=== PATIENT | female | born 1965 | race Two or more races ===

== ENCOUNTER 2020-09-24 16:49 | Inpatient (IN) | payer MEDICARE, OTHER ==
[~2020-09-24] VITALS: Ht 160 cm; Wt 71.7 kg
[2020-09-24 20:00] VITALS: BP 136/76
[2020-09-24] MEDS ORDERED: MAGNESIUM HYDROXIDE 30 ML LIQUID UDC PO PRN (20:30)
[2020-09-24] MEDS ORDERED: BLOOD SUGAR DIAGNOSTIC 1 EACH STRIP VI ONE (20:30)
[2020-09-24] MEDS ORDERED: MAG HYDROX/AL HYDROX/SIMETH 30 ML LIQUID UDC PO PRN (20:30)
[2020-09-25 03:02] LABS: *BILIRUBIN,URIN NEGATIVE (NEGATIVE); *BLOOD, URINE NEGATIVE (NEGATIVE); *CLARITY,URINE CLEAR (CLEAR); *KETONES,URINE NEGATIVE (NEGATIVE); *UROBILINOGEN,URINE 0.2 E.U./dl (NORMAL); LEUKOCYTE ESTERASE ,URINE NEGATIVE (NEGATIVE); NITRITE, URINE NEGATIVE (NEGATIVE); UGLUCOSE NEGATIVE (NEGATIVE)
[2020-09-25 03:03] LABS: *COLOR,URINE STRAW (YELLOW)
[2020-09-25 03:43] LABS: *AMPHETAMINE, URINE NEGATIVE (NEGATIVE); *CANNABINOID, URINE NEGATIVE (NEGATIVE); *COCCAINE, URINE NEGATIVE (NEGATIVE); *OPIATE, URINE NEGATIVE (NEGATIVE); *PHENCYCLIDINE SCREEN,URINE NEGATIVE (NEGATIVE)
--- NOTE | 2020-09-25 03:46 | NUR ---
Admission Note: 55 y.o. Canadian (Canadian and Yi-speaking) female admitted to [facility] accompanied by 2 website project manager as a direct admit from [facility]. Pt is on a 5150 for GD, and is under the care of Dr Melgoza and Dr Barajas, with a dx of Psychosis. According to the 5150, Pt was found talking to herself, acting bizarre, and being aggressive to others. Pt was disoriented and unable to care for herself, or verbalize a plan for self care. Upon face to face assessment, Pt is A+Ox2 to self and place, presents with altered thought process-agitated, confused, and disoriented. Pt has poor insight into situation and reason for admission, is delusional and non-sensical. Pt is crying, tearful, emotional, and keeps repeating, the lady or that lady. Pt is noted to be restless and anxious, but refused prn medication. Denies SI/HI and verbally contracted for safety, but is unreliable due to poor impulse control, agitation, and over reaction to stressors. Upon admission to the unit VS stable, denies pain, BS 163, denies s/s r/t hyperglycemia. Unable to obtain firearm or legal hx, and per previous hospital record, Pt has no h/o smoking, drug, or alcohol abuse. Pt reluctantly took a shower and skin assessment completed with licensed female staff, skin c/d/i. Pt placed in clean hospital gown and pants. Pt has a known medical h/o psychosis, DM, and schizophrenia, NKA. Dr Melgoza and Dr Barajas notified of admission, orders received, meds to be reconciled. Unable to obtain family contacts with the Pt or through the previous medical record, will refer to Multimedia Specialist for follow up. Pt has a weak gait, refused FWW, PT ordered. UDS and UA negative from previous hospital. Belongings inventoried and placed in Pt locker. Pt was cognitively unable to sign paperwork, co-signed with fat pressroom worker. Pt educated regarding unit rules and expectations. Patient rights explained, Advisement and patient rights handbook given, Pt will need reinforcement due to cognitive impairment. Pt oriented to the unit, the phones, her room, and the bathroom. Q 15 minute safety checks initiated.
[2020-09-25 07:30] VITALS: BP 115/74
[2020-09-25] MEDS: ACETAMINOPHEN 325 MG TABLET PO PRN (08:13)
--- NOTE | 2020-09-25 10:29 | NUR ---
KRISTINE Family Contact: SW spoke with patient's brother, Rickie ([phone]) regarding patient's treatment and discharge plan. Rickie stated that the patient has been homeless for a while and does not accept care from anyone. Rickie stated that he has tried to help the patient and provide her mcfp however she always refuses or destroys his property. Rickie stated that he wants to receive updates regarding where she goes however does not want to be involved in her care.
--- NOTE | 2020-09-25 10:48 | NUR ---
KRISTINE Initial Discharge Plan: Patient is currently homeless and will require alternate SNF placement upon discharge. Patient's brother, Rickie ([phone]) is aware of the patient's current situation and would like to be updated with her discharge plan. KRISTINE will continue to work with patient, family, and MD to ensure a safe and proper discharge plan.
--- NOTE | 2020-09-25 10:50 | NUR ---
Firearms Report: Brim Edge Trimmer completed and submitted a [employer] firearms report for 5150 grave disability certification. A copy of report has been placed in patient chart.
[2020-09-25 15:29] VITALS: BP 150/92
[2020-09-25 18:46] LABS: BASOPHILS % (AUTO) 0.7 % (0.0-2.0); EOSINOPHILS % (AUTO) 0.8 % (0.0-7.0); HEMATOCRIT 38.6 % (31.2-41.9); HEMOGLOBIN 13.1 g/dL (10.9-14.3); LYMPHOCYTES # (AUTO) 1.5 K/uL (20.0-40.0); LYMPHOCYTES % (AUTO) 22.9 % (20.5-51.5); MEAN CORPUSCULAR HGB CONC 34 g/dL (32.3-35.6); MEAN CORPUSCULAR VOLUME 91.2 fL (75.5-95.3); MONOCYTES # (AUTO) 0.5 K/uL (2.0-10.0); MONOCYTES % (AUTO) 8.1 % (0.0-11.0); NEUTROPHILS # (AUTO) 4.4 K/uL (1.8-8.9); NEUTROPHILS % (AUTO) 67.5 % (38.5-71.5); PLATELET COUNT (AUTO) 236 K/uL (179-408); RED BLOOD CELL COUNT(AUTO) 4.23 MIL/uL (3.63-4.92); WHITE BLOOD COUNT (AUTO) 6.6 K/uL (3.8-11.8)
[2020-09-25 19:04] LABS: BILIRUBIN,TOTAL 0.5 mg/dL (0.2-1.0); CREATININE 0.8 mg/dL (0.6-1.3); POTASSIUM 4.3 mmol/L (3.5-5.1)
[2020-09-25 20:00] VITALS: BP 139/96
--- NOTE | 2020-09-25 20:30 | NUR ---
GPS: Pt.was asked about wanting her flu vaccine this season. Pt.declined despite explanation of risks vs.benefits x3. Refused reading material regarding vaccines when offered x3.
[2020-09-25] MEDS: risperiDONE 0.5 MG TABLET PO SCH (20:37)
[2020-09-25] MEDS ORDERED: risperiDONE 0.5 MG TABLET PO SCH (21:00)
[2020-09-26 07:30] VITALS: BP 146/78
[2020-09-26] MEDS: risperiDONE 0.5 MG TABLET PO SCH ×2 (08:15→20:28)
--- NOTE | 2020-09-26 08:52 | NUR ---
SNF Referral: This SW sent referral to [facility] admin from [facility] ([phone]) and will review if pt is accepted or not.
[2020-09-26 16:54] VITALS: BP 112/63
[2020-09-26 19:45] VITALS: BP 113/69
[2020-09-26] MEDS ORDERED: DEXTROSE 50% 50 ML DISP.SYRIN IV PRN (20:15)
[2020-09-26 20:25] VITALS: BP 113/69
[2020-09-26] MEDS: BLOOD SUGAR DIAGNOSTIC 1 EACH STRIP VI SCH (21:19)
[2020-09-26] MEDS ORDERED: INSULIN REGULAR, HUMAN 300 UNIT/3 ML VIAL ONE (21:59)
[2020-09-26] MEDS: INSULIN REGULAR, HUMAN 300 UNIT/3 ML VIAL SQ PRN (22:03)
[2020-09-27] MEDS: LORAZEPAM 1 MG TABLET PO PRN ×2 (00:25→12:08)
[2020-09-27] MEDS: glipiZIDE 5 MG TABLET PO SCH ×2 (06:37→16:34)
[2020-09-27] MEDS: BLOOD SUGAR DIAGNOSTIC 1 EACH STRIP VI SCH ×4 (06:37→20:11)
[2020-09-27 07:30] VITALS: BP 126/78
[2020-09-27] MEDS: risperiDONE 0.5 MG TABLET PO SCH ×2 (08:23→20:12)
[2020-09-27] MEDS: MULTIVITAMINS,THERAPEUTIC TABLET PO SCH (08:23)
[2020-09-27] MEDS: LISINOPRIL 5 MG TABLET PO SCH (08:23)
[2020-09-27] MEDS: METFORMIN HCL 500 MG TABLET PO SCH ×2 (08:23→16:34)
--- NOTE | 2020-09-27 09:59 | NUR ---
SNF Contact: This SW contacted [facility] admin from [facility] ([phone]) who stated pt is denied due to eloping for their facility.
--- NOTE | 2020-09-27 10:00 | NUR ---
SNF Referral: This SW sent patient's clinicals to Eddie Ramirez ([phone]) to find a SNF.
[2020-09-27] MEDS: INSULIN REGULAR, HUMAN 300 UNIT/3 ML VIAL SQ PRN ×2 (13:25→20:14)
--- NOTE | 2020-09-27 14:30 | NUR ---
Gps/Linen Supply Load Builder- Talking loud on the phone, redirected back in her room.Asleep for awhile.
[2020-09-27 16:00] VITALS: BP 107/70
[2020-09-27 20:00] VITALS: BP 100/83
[2020-09-27] MEDS: DIVALPROEX 250 MG TABLET.DR PO SCH (20:12)
--- NOTE | 2020-09-28 05:45 | NUR ---
Received patient in bed last night, easy to arouse. Patient is withdrawn and isolative. At one point during the night patient was pacing back and forth in the day room but was redirectable. Patient denies SI, but unwilling to engage in any meaningful conversation. Total hours of sleep are 9.0 Continuing to monitor for safety and any behavioral issues.
[2020-09-28] MEDS: BLOOD SUGAR DIAGNOSTIC 1 EACH STRIP VI SCH ×4 (06:30→20:00)
[2020-09-28] MEDS: glipiZIDE 5 MG TABLET PO SCH ×2 (06:30→16:30)
[2020-09-28 07:30] VITALS: BP 92/62
[2020-09-28] MEDS: risperiDONE 0.5 MG TABLET PO SCH (08:05)
[2020-09-28] MEDS: DIVALPROEX 250 MG TABLET.DR PO SCH ×2 (08:05→20:01)
[2020-09-28] MEDS: MULTIVITAMINS,THERAPEUTIC TABLET PO SCH (08:05)
[2020-09-28] MEDS: LISINOPRIL 5 MG TABLET PO SCH (08:05)
[2020-09-28] MEDS: METFORMIN HCL 500 MG TABLET PO SCH ×2 (08:05→17:06)
[2020-09-28 16:00] VITALS: BP 125/73
--- NOTE | 2020-09-28 18:22 | NUR ---
Received Aox1, patient labile, responding to internal stimuli , patient pacing in hallway , easily irritable, patient selectively compliant with care and treatment, seen by dr. Melgoza, , montred [id number] for safety, no sign of distress, will continue monitor
[2020-09-28] MEDS: risperiDONE 1 MG TABLET PO SCH (20:01)
[2020-09-28] MEDS: INSULIN REGULAR, HUMAN 300 UNIT/3 ML VIAL SQ PRN (20:04)
--- NOTE | 2020-09-29 05:38 | NUR ---
Patient slept 6.15 hours. Up early trying to bath in the sink in the day room. Compliant with medications and blood sugar checks. No behavioral issues during the night. Continuing to monitor for safety.
[2020-09-29] MEDS: glipiZIDE 5 MG TABLET PO SCH ×2 (06:14→16:09)
[2020-09-29] MEDS: BLOOD SUGAR DIAGNOSTIC 1 EACH STRIP VI SCH ×4 (06:47→20:02)
[2020-09-29 07:30] VITALS: BP 127/87
[2020-09-29] MEDS: METFORMIN HCL 500 MG TABLET PO SCH ×2 (07:51→17:18)
[2020-09-29] MEDS: MULTIVITAMINS,THERAPEUTIC TABLET PO SCH (08:01)
[2020-09-29] MEDS: DIVALPROEX 250 MG TABLET.DR PO SCH ×2 (08:02→20:03)
[2020-09-29] MEDS: risperiDONE 1 MG TABLET PO SCH ×2 (08:02→20:03)
[2020-09-29] MEDS: LISINOPRIL 5 MG TABLET PO SCH (08:02)
[2020-09-29] MEDS: INSULIN REGULAR, HUMAN 300 UNIT/3 ML VIAL SQ PRN (08:15)
[2020-09-29] MEDS: LORAZEPAM 1 MG TABLET PO PRN (08:28)
[2020-09-29] MEDS: risperiDONE 0.5 MG TABLET PO SCH (16:10)
[2020-09-29 16:40] VITALS: BP 129/71
--- NOTE | 2020-09-29 17:30 | NUR ---
Received patient AOx1, patient quiet, seen pacing in the hallway, this morning patient started shouting while shes in the toilet, patient responding to internal stimuli, oral prn was given for anxiety, patient calmed down and able to control her hallucinations, patient took naps in her room, compliant with care and treatment, monitored q15 minutes for safety, no sign of any distress , yury continue monitor
[2020-09-29 20:00] VITALS: BP 108/63
[2020-09-30] MEDS: BLOOD SUGAR DIAGNOSTIC 1 EACH STRIP VI SCH ×2 (06:30→12:18)
[2020-09-30] MEDS: glipiZIDE 5 MG TABLET PO SCH ×2 (06:31→16:13)
--- NOTE | 2020-09-30 06:40 | NUR ---
Patient remain calm and stayed in her room, patient slept hours, patient been compliant , redirectable, no sign of any distress , patient has lessen episode of having auditory hallucination and havent had any episode of shouting, patient monitored [id number] for safety, patient stays mostly in her bed, patient woke up and went to dining room but went back to her room again
[2020-09-30 07:30] VITALS: BP 129/68
[2020-09-30] MEDS: DIVALPROEX 250 MG TABLET.DR PO SCH ×2 (08:02→20:03)
[2020-09-30] MEDS: risperiDONE 0.5 MG TABLET PO SCH ×3 (08:02→16:13)
[2020-09-30] MEDS: METFORMIN HCL 500 MG TABLET PO SCH ×2 (08:09→17:03)
[2020-09-30] MEDS: MULTIVITAMINS,THERAPEUTIC TABLET PO SCH (08:10)
[2020-09-30] MEDS: LISINOPRIL 5 MG TABLET PO SCH (08:11)
[2020-09-30] MEDS: INSULIN REGULAR, HUMAN 300 UNIT/3 ML VIAL SQ PRN (12:23)
[2020-09-30 16:00] VITALS: BP 117/78
--- NOTE | 2020-09-30 17:10 | NUR ---
patient is alert and oriented x3, pacing in hallway,responded to internal stimuli ,remains isolative and withdrawn .compliant with all medication and care, will continue close monitoring.
[2020-09-30 20:00] VITALS: BP 101/68
[2020-09-30] MEDS: risperiDONE 1 MG TABLET PO SCH (20:02)
[2020-09-30] MEDS: ATORVASTATIN 10 MG TABLET PO SCH (20:03)
[2020-10-01] MEDS: LORAZEPAM 1 MG TABLET PO PRN (05:08)
--- NOTE | 2020-10-01 06:13 | NUR ---
Patient was crying at the beginning of the shift and responding to internal stimuli. Patient slept 8.30 hours ,but woke up and was pacing the hallway going into another patients room. When redirected patient became agitated and begun to yell. Patient received a PRN medication and is back in own bed resting. Continuing to monitor for safety and behavior escalation.
[2020-10-01] MEDS: glipiZIDE 5 MG TABLET PO SCH ×2 (06:41→17:04)
[2020-10-01 07:30] VITALS: BP 90/63
[2020-10-01] MEDS: MULTIVITAMINS,THERAPEUTIC TABLET PO SCH (08:08)
[2020-10-01] MEDS: risperiDONE 0.5 MG TABLET PO SCH ×3 (08:08→17:03)
[2020-10-01] MEDS: DIVALPROEX 250 MG TABLET.DR PO SCH ×2 (08:08→20:40)
[2020-10-01] MEDS: LISINOPRIL 5 MG TABLET PO SCH (08:08)
[2020-10-01] MEDS: METFORMIN HCL 500 MG TABLET PO SCH ×2 (08:08→17:03)
--- NOTE | 2020-10-01 10:02 | NUR ---
Probable Case Hearing: Patient's probable cause hearing was held today and it was upheld for GD and danger to self.
--- NOTE | 2020-10-01 15:14 | NUR ---
SNF Contact: This SW received a phone call from Eddie zaman who stated patient is accepted at [facility].
[2020-10-01 15:39] VITALS: BP 157/96
[2020-10-01 20:29] VITALS: BP 113/57
[2020-10-01] MEDS: ATORVASTATIN 10 MG TABLET PO SCH (20:40)
[2020-10-01] MEDS: risperiDONE 1 MG TABLET PO SCH (20:40)
[2020-10-02] MEDS: glipiZIDE 5 MG TABLET PO SCH ×2 (06:48→16:22)
[2020-10-02 07:30] VITALS: BP 125/78
[2020-10-02] MEDS: METFORMIN HCL 500 MG TABLET PO SCH ×2 (08:03→16:22)
[2020-10-02] MEDS: DIVALPROEX 250 MG TABLET.DR PO SCH ×2 (08:04→21:13)
[2020-10-02] MEDS: risperiDONE 1 MG TABLET PO SCH ×2 (08:04→21:13)
[2020-10-02] MEDS: MULTIVITAMINS,THERAPEUTIC TABLET PO SCH (08:04)
[2020-10-02] MEDS: LISINOPRIL 5 MG TABLET PO SCH (08:04)
[2020-10-02 16:00] VITALS: BP 99/63
--- NOTE | 2020-10-02 18:11 | NUR ---
received patient compliant with all medication , pacing in hallway .denies any suicidal ideation.
[2020-10-02 20:06] VITALS: BP 118/57
[2020-10-02] MEDS ORDERED: risperiDONE 0.5 MG TABLET PO SCH (21:00)
[2020-10-02] MEDS: ATORVASTATIN 10 MG TABLET PO SCH (21:11)
[2020-10-03] MEDS: TEMAZEPAM 7.5 MG CAPSULE PO PRN (00:13)
[2020-10-03 07:30] VITALS: BP 120/72
[2020-10-03] MEDS: MULTIVITAMINS,THERAPEUTIC TABLET PO SCH (08:04)
[2020-10-03] MEDS: METFORMIN HCL 500 MG TABLET PO SCH ×2 (08:04→17:02)
[2020-10-03] MEDS: risperiDONE 1 MG TABLET PO SCH ×2 (08:04→20:11)
[2020-10-03] MEDS: glipiZIDE 5 MG TABLET PO SCH ×2 (08:04→16:00)
[2020-10-03] MEDS: DIVALPROEX 250 MG TABLET.DR PO SCH ×2 (08:04→20:10)
[2020-10-03] MEDS: LISINOPRIL 5 MG TABLET PO SCH (08:05)
[2020-10-03 16:00] VITALS: BP 104/59
--- NOTE | 2020-10-03 18:19 | NUR ---
Received patient AOx1, patient ambulatory, self care, able to redirect, compliant with medication, patient seen walking in the hallway , patient denies SI and Hi, patient verbalizes that shes fine and answers question appropriately, patient verbalizes concern on her Discharge planning, patient calm cooperative in most of the day, patient still responding to internal stimuli, patient screaming in her room , asked if shes ok , patient reply that shes fine, no sign of any distress at this time, monitored [id number] for safety
[2020-10-03 20:07] VITALS: BP 110/80
[2020-10-03] MEDS: ATORVASTATIN 10 MG TABLET PO SCH (20:10)
--- NOTE | 2020-10-04 05:25 | NUR ---
Patient slept 8.30 hours. Up early for a shower. Still responding to internal stimuli. Patient is medication compliant and denies SI and HI. Very little interaction with peers noted. VS are stable and continuing to monitor for safety. Q 15 min rounds are being done.
[2020-10-04] MEDS: glipiZIDE 5 MG TABLET PO SCH ×2 (06:30→16:12)
[2020-10-04 07:30] VITALS: BP 108/67
[2020-10-04] MEDS: METFORMIN HCL 500 MG TABLET PO SCH ×2 (07:58→17:34)
[2020-10-04] MEDS: MULTIVITAMINS,THERAPEUTIC TABLET PO SCH (08:00)
[2020-10-04] MEDS: DIVALPROEX 250 MG TABLET.DR PO SCH ×3 (08:00→16:12)
[2020-10-04] MEDS: risperiDONE 1 MG TABLET PO SCH ×2 (08:00→20:44)
[2020-10-04] MEDS: LISINOPRIL 5 MG TABLET PO SCH (08:02)
[2020-10-04 15:49] VITALS: BP 129/78
--- NOTE | 2020-10-04 18:11 | NUR ---
Received patient AOx1, patient has poor insight, labile, responding to internal stimuli, patient seen pacing in hallway, calm cooperative compliant, patient were encourage to wear face mask when in the hallway and dining room as covid precaution , patient called his brother on the phone spoke with his brother, patient has a discharge planning going to [facility] on Thursday and has an order for Covid antigen swab on Thursday, will endorse for next shift, patient monitored q15 minutes
--- NOTE | 2020-10-04 19:30 | NUR ---
In bed, sleeping during initial rounds. No s/s of respiratory distress. Continue current plan of care.
[2020-10-04 20:02] VITALS: BP 135/77
[2020-10-04] MEDS: ATORVASTATIN 10 MG TABLET PO SCH (20:44)
[2020-10-04] MEDS: TEMAZEPAM 7.5 MG CAPSULE PO PRN (20:44)
--- NOTE | 2020-10-05 07:20 | NUR ---
Patient slept 7 hours. Still having some hallucinations.
[2020-10-05 07:30] VITALS: BP 108/60
--- NOTE | 2020-10-05 07:35 | NUR ---
received patient awake, AOx1, patient responding to internal stimuli, patient no sign of distress at this time, compliant with medication, will continue monitor
[2020-10-05] MEDS: glipiZIDE 5 MG TABLET PO SCH ×2 (07:53→16:23)
[2020-10-05] MEDS: MULTIVITAMINS,THERAPEUTIC TABLET PO SCH (08:04)
[2020-10-05] MEDS: DIVALPROEX 250 MG TABLET.DR PO SCH ×3 (08:04→16:22)
[2020-10-05] MEDS: risperiDONE 1 MG TABLET PO SCH ×2 (08:04→20:30)
[2020-10-05] MEDS: METFORMIN HCL 500 MG TABLET PO SCH ×2 (08:04→17:00)
[2020-10-05] MEDS: LISINOPRIL 5 MG TABLET PO SCH (08:04)
[2020-10-05] MEDS: LORAZEPAM 1 MG TABLET PO PRN ×2 (09:31→20:30)
[2020-10-05 16:07] VITALS: BP 122/86
--- NOTE | 2020-10-05 18:23 | NUR ---
Patient been calm cooperative with sudden outburst and scream , patient responding to internal stimuli, monitored q15 minutes for safety , no sign of distress
[2020-10-05 20:00] VITALS: BP 131/67
[2020-10-05] MEDS: ACETAMINOPHEN 325 MG TABLET PO PRN (20:29)
[2020-10-05] MEDS: ATORVASTATIN 10 MG TABLET PO SCH (20:30)
--- NOTE | 2020-10-06 05:38 | NUR ---
Received patient in bed last night. VS stable. No noticeable reaction to internal stimuli. Medication compliant and ate a snack. Total sleep was 9.15 hours. Patient up early and showered. No yelling noted during the shift. Re check of temperature during the night, remained normal at 97.6. Continuing to monitor patient for safety and behavior escalation. Patient remains isolative with minimal peer interaction. Plan is to discharge patient on Thursday per Dr. Melgoza.
[2020-10-06] MEDS: glipiZIDE 5 MG TABLET PO SCH ×2 (06:09→16:38)
[2020-10-06 07:30] VITALS: BP 106/65
[2020-10-06] MEDS: LISINOPRIL 5 MG TABLET PO SCH (08:11)
[2020-10-06] MEDS: MULTIVITAMINS,THERAPEUTIC TABLET PO SCH (08:11)
[2020-10-06] MEDS: DIVALPROEX 250 MG TABLET.DR PO SCH ×3 (08:11→16:38)
[2020-10-06] MEDS: METFORMIN HCL 500 MG TABLET PO SCH ×2 (08:11→18:07)
[2020-10-06] MEDS: risperiDONE 1 MG TABLET PO SCH ×2 (08:12→20:05)
--- NOTE | 2020-10-06 10:23 | NUR ---
Gps/assembly detailer- Had been afebrile, adequate fluid intake, stayed in the activity room during breakfast., no coughing noted , compliant with am meds. responding to internal stimuli, noted talking to self
[2020-10-06 16:00] VITALS: BP 101/69
[2020-10-06 20:00] VITALS: BP 122/73
[2020-10-06] MEDS: ATORVASTATIN 10 MG TABLET PO SCH (20:05)
--- NOTE | 2020-10-07 06:11 | NUR ---
Patient stayed in her room, sletp most of the night. Patient afebrile no coughing no congestion noted. Patient came out of her room senior director finance ambulating in the hallways and went back to her room. cont to monitor.
[2020-10-07] MEDS: glipiZIDE 5 MG TABLET PO SCH ×2 (06:35→16:29)
[2020-10-07 07:30] VITALS: BP 92/57
[2020-10-07] MEDS: DIVALPROEX 250 MG TABLET.DR PO SCH ×3 (08:02→16:29)
[2020-10-07] MEDS: METFORMIN HCL 500 MG TABLET PO SCH ×2 (08:02→17:12)
[2020-10-07] MEDS: MULTIVITAMINS,THERAPEUTIC TABLET PO SCH (08:02)
[2020-10-07] MEDS: risperiDONE 1 MG TABLET PO SCH ×2 (08:02→20:31)
[2020-10-07] MEDS: LISINOPRIL 5 MG TABLET PO SCH (08:03)
--- NOTE | 2020-10-07 10:00 | NUR ---
Gps/Truck Safety Inspector- Patient noted going to other room sitting comfortably, discouraged from going to other patient's room, informed she can sit in the dinning room and attend her group tx or sit in her room. . Alert oriented 2 x, noted at times talking to self.
--- NOTE | 2020-10-07 10:45 | NUR ---
Gps/Fruit Distributor- Patient was uncooperative during Covid swab test , able to complete testing after onother staff came in to reinforced , specimen obtained sent to lab.
[2020-10-07 15:03] VITALS: BP 131/76
--- NOTE | 2020-10-07 19:07 | NUR ---
Gps/Form Building Supervisor- Patient's brother called, wants to checked placement for the patient,, claimed his sister is worried she does not know where she is going tomorrow, , she is homeless per brother. Reassured patient she is going to [facility] , will arranged ambulance to transport patient to the facility. Patient calmed down .Discharge planning remains for tomorrow .
[2020-10-07] MEDS: ATORVASTATIN 10 MG TABLET PO SCH (20:31)
[2020-10-07 20:36] VITALS: BP 131/76
--- NOTE | 2020-10-08 05:49 | NUR ---
Gps:Remain calm and cooperative with meds and care. Patient slept 8.45 hours. Denies SI and HI. interact with peers . VS are stable and continuing to monitor for safety. denies pain or discomfort at this time. Q 15 min rounds are being done. awake sitting in her bed.
[2020-10-08] MEDS: glipiZIDE 5 MG TABLET PO SCH (06:44)
[2020-10-08] MEDS: METFORMIN HCL 500 MG TABLET PO SCH (08:20)
[2020-10-08] MEDS: DIVALPROEX 250 MG TABLET.DR PO SCH ×2 (08:20→12:39)
[2020-10-08] MEDS: MULTIVITAMINS,THERAPEUTIC TABLET PO SCH (08:20)
[2020-10-08] MEDS: risperiDONE 1 MG TABLET PO SCH (08:20)
[2020-10-08] MEDS: LISINOPRIL 5 MG TABLET PO SCH (08:21)
[2020-10-08 08:30] VITALS: BP 129/82
--- NOTE | 2020-10-08 09:39 | NUR ---
Discharge Note: Patient will be discharged today to [facility] located at [address] [place] [address]; ([phone]). Patient will be provided with ambulance transportation at 12PM. KRISTINE spoke with Jo Ann, record center coordinator ([phone]) at the facility, who stated they are ready to accept the patient today. Patient is alert and oriented x3 and is not able to plan for self-care at this time but is willing to accept care provided for her at the facility. Patient denies any suicidal or homicidal ideation as well as auditory and visual hallucinations. Patient is aware and agreeable with discharge plans. Patient presents with euthymic mood and congruent affect. Pt appears to be ambulatory with a steady gait. Pt appears to be well groomed and appropriately dressed. Patient will follow-up with Psychiatrist Bernardo and Ribbon Lapper Tender Pietro at [facility]. Homeless resources were provided and included [address] information line for shelters and homeless resources. A copy of all resources given to patient was also placed in the chart. Patient signed the homeless waiver and choice of vendor upon discharge and a copy was placed in the chart.
--- NOTE | 2020-10-08 13:30 | NUR ---
Patient discharged today to [facility] via ambulance at 1300, patient is homeless ,alert and oriented x3, ambulating and self care.vital sign stable,denies any pain or discomfort. all personal belonging returned to patient.
== END 2020-10-08 13:30 | DRG 885 ==
LOC: GPS 19:59
PROVIDERS: ADMIT Psychiatry & Neurology Psychiatry; ATTEND Registered Nurse
DX: F31.2 Bipolar disorder, current episode manic severe with psychotic features (principal); E11.65 Type 2 diabetes mellitus with hyperglycemia; E87.1 Hypo-osmolality and hyponatremia; F29 Unspecified psychosis not due to a substance or known physiological condition; G31.84 Mild cognitive impairment of uncertain or unknown etiology; E66.9 Obesity, unspecified; Z68.28 Body mass index [BMI] 28.0-28.9, adult; I10 Essential (primary) hypertension; E78.5 Hyperlipidemia, unspecified
CPT/HCPCS: 36415; 85025; 87086; J1815; J3490